=== PATIENT | female | born 1975 | race Caucasian/White ===

== ENCOUNTER → 2017-09-05 07:17 | Outpatient (CLI) | payer OTHER, SELFPAY ==
--- NOTE | 2017-09-05 07:22 | CT_ITS ---
STUDY: CT MAXILLOFACIAL SINUSES REASON FOR EXAM: Female, 41 years old. Sinusitis RADIATION DOSAGE (If Supplied By Facility): CTDIvol = ( 10.16 ) mGy, DLP = ( 299.60 ) mGycm TECHNIQUE: The patient was scanned in a multi detector CT scanner. High resolution axial imaging was performed without the administration of intravenous contrast material. Sagittal and coronal images were reconstructed. Individualized dose optimization techniques were used for this CT. COMPARISON: None. FINDINGS: FRONTAL SINUSES: Normal aeration, without mucosal inflammatory disease. ETHMOIDAL SINUSES: Normal aeration, without mucosal inflammatory disease. MAXILLARY SINUSES: Normal aeration, without mucosal inflammatory disease. There is a 1 cm mucous retention cyst of the right maxillary sinus. SPHENOIDAL SINUSES: Normal aeration, without mucosal inflammatory disease. There is patency of the bilateral maxillary infundibuli with normal uncinate processes, ethmoid bullae, and hiatus semilunaris. Normal bilateral middle turbinates. Normal bilateral inferior turbinates. Normal midline nasal septum. There is patency of the bilateral nasal airways. The visualized osseous structures are normal. The visualized bilateral orbital contents are normal. CT/Sinus/Facial Bone IMPRESSION: Essentially normal CT examination of the maxillofacial sinuses. Electronically Signed: Velasquez Gonzalez MD at 9:15 EDT , Service support ,
== END ==
PROVIDERS: Family Provider Physician Assistant; PCP Physician Assistant; Visit Provider Otolaryngology
DX: J01.91 Acute recurrent sinusitis, unspecified (principal); R51 Headache
CPT/HCPCS: 70486

== ENCOUNTER 2021-05-14 05:15 | Emergency (ER) | payer OTHER, SELFPAY ==
[2021-05-14 05:16] VITALS: BP 152/106; PULSE 89; RESP 18; TEMP 36.3; O2SAT 100; BMI 22.0
--- NOTE | 2021-05-14 05:46 | EKG12_ITS ---
Test Reason : CP Blood Pressure : / mmHG Vent. Rate : 091 BPM Atrial Rate : 091 BPM P-R Int : 128 ms QRS Dur : 090 ms QT Int : 356 ms P-R-T Axes : 082 093 060 degrees QTc Int : 437 ms Normal sinus rhythm Nonspecific ST abnormality Abnormal ECG Confirmed by JOVI COLLIER, EDIN ([id number]), deputy editor in chief RICHAR NAVARRO ([id number]) on 05/19/2021 11:17:14 AM Referred By: PHILLIP Confirmed By:EDIN ESPANA MD
[2021-05-14 05:53] LABS: Absolute Lymphocyte Count 2.28 X10^3/uL (0.83-4.51); Absolute Neutrophil Count 3.5 X10^3/uL (2.0-7.7); Basophil# 0.03 X10^3/uL; Basophil% 0.5 % (0-1); Eosinophil# 0.07 X10^3/uL; Eosinophils% 1.1 % (0-5); Hematocrit 40.3 % (37-47); Hemoglobin 13.6 g/dL (12.0-15.0); Lymphocyte # 2.28 X10^3/ul (0.83-4.51); Lymphocyte % 35.6 % (19-41); Mean Corp Hgb Conc 33.7 g/dL (32-36); Mean Corpuscular Hgb 29.6 pg (27.0-32.0); Mean Corpuscular Volume 87.8 fL (81-99); Mean Platelet Vol. 8.5 fl (6.2-12.0); Monocyte# 0.56 X10^3/uL; Monocyte% 8.7 % (0-10); NRBC Flagged by Analyzer 0 % (0-5); Neutrophil # 3.46 X10^3/uL (2.7-7.7); Neutrophil % 53.9 % (47-70); Platelet Count 324 K/mm3 (150-450); RBC Distribution Width CV 12.8 % (11.6-14.6); RBC Distribution Width SD 41.8 fl (35.1-43.9); Red Blood Count 4.59 M/mm3 (4.2-5.4); White Blood Count 6.4 K/mm3 (4.4-11.0)
--- NOTE | 2021-05-14 06:00 | RAD_ITS ---
STUDY: X-RAY CHEST REASON FOR EXAM: Female, 45 years old. chest pain TECHNIQUE: PA and lateral views of the chest. COMPARISON: None. FINDINGS: There are superimposed monitor leads. The lungs are clear and expanded. There is no demonstrated pleural abnormality. Normal size heart. Normal mediastinum and armond. Normal visualized pulmonary arteries. Normal visualized aortic arch and descending thoracic aorta. Normal visualized thoracic spine. Normal visualized ribs, clavicles, and shoulders. There is no demonstrated abnormality of the visualized soft tissue structures of the upper abdomen. RAD/Chest PA and Lateral IMPRESSION: Normal x-ray examination of the chest. Electronically Signed: Xi Blanc MD at 6:22 EST , Service support ,
--- NOTE | 2021-05-14 06:04 | EX.ED.DYSGE1 ---
HPI History of Present Illness Chief Complaint: Chest Pain Narrative Narrative: Patient is a 45-year-old female who states that she got her second Covid vaccination about 5 days ago. She states since that time she has been noticing intermittent chest wall discomfort. She states that she has been having increased anxiety over this as well. She states last evening she feels like her anxiety and the chest discomfort more intense than they have been over the past 5 days and secondary to this comes to the hospital for evaluation. Patient denies any nausea vomiting diaphoresis or shortness of breath associated with this. She denies any family history of cardiac disease and she denies any recent travel surgery or history of DVT/PE. However as patient symptoms are worsening she was concerned and presents to the hospital for evaluation [facility] Medical History no medical history Home Medications multivitamin [Multi-Day] 1 tab PO DAILY 05/14/21 [History Last Taken Unknown] Allergy/AdvReac Type Severity Reaction Status Date / Time codeine AdvReac Nausea Verified 05/14/21 05:20 Social History Smoking Status: Never smoker [facility] ED Constitutional Constitutional ED: Denies chills or fever(s) ENT ENT ED: Denies sore throat Cardiovascular Cardiovascular: Reports chest pain; Denies palpitations or racing heartbeat Respiratory/Chest Respiratory/Chest: Denies cough or dyspnea Gastrointestinal Gastrointestinal: Denies abdominal pain, diarrhea, nausea or vomiting Genitourinary Genitourinary ED: Denies dysuria Musculoskeletal Musculoskeletal: Reports myalgias Integumentary Denies rash Neurologic Neurologic: Denies headache(s) Psychiatric Psychiatric: Reports anxiety Hematologic/Lymphatic Hematologic/Lymphatic: Denies easy bleeding or easy bruising EXAM Physical Exam Const Vital Signs: 05/14/21 05:16 05/14/21 06:50 Temperature 97.4 F L Temperature Source Temporal Pulse Rate 89 84 Respiratory Rate 18 16 Blood Pressure 152/106 H 153/87 H Blood Pressure Mean 121 Pulse Ox 100 98 Oxygen Delivery Method Room Air Positive well nourished and well developed General Appearance ED: well developed HEENT Reports moist mucous membranes Eyes PERRL and EOMs intact bilaterally Neck supple Chest Wall Chest Narrative: There is reproducible left anterior chest wall pain with palpation without bony deformity or crepitance Resp normal respiratory effort and clear to auscultation bilaterally Cardio regular rate and regular rhythm Rate: other Other Details: Radial pulses are plus 2 out of 4 bilaterally are equal and symmetric GI normal to inspection, nondistended, normoactive bowel sounds, non-tender, non-distended and no masses GI Narrative: No voluntary guarding or rigidity no pulsatile mass Auscultation: normoactive bowel sounds Palpation: soft Extremity normal to inspection Extremity Narrative: No asymmetric edema no pitting edema negative Homans' sign bilaterally Neuro oriented x3 and CN's II-XII intact bilaterally Sensorium / Orientation: alert Motor Exam: strength 5/5 throughout Psych Psych Narrative: Patient has a nervous/anxious affect Mood & Affect: anxious Skin no rashes or lesions noted Skin Narrative: No overlying soft tissue changes to suggest trauma or infection MDM MDM MDM Narrative Medical decision making narrative: Patient presented the ER mildly hypertensive but otherwise had no abnormal vital signs. Her symptoms are most consistent with initial vaccine which has been exacerbated by her anxiety. She is low risk for cardiac disease or PE by did elect to perform a basic work-up because of her symptoms. EKG showed normal sinus rhythm troponin is normal and D-dimer is also normal. Her chest x-ray revealed no widening of the mediastinum or lung pathology. Therefore at this time as she is low risk for CAD and pulmonary embolus and has a negative work-up I do not feel there is need for further treatment and patient can be discharged home. Lab Data Attestation: I reviewed the patient's lab results. Labs: Laboratory Results - last 24 hr 05/14/21 05/14/21 05/14/21 05:25 05:25 05:25 WBC 6.4 RBC 4.59 Hgb 13.6 Hct 40.3 MCV 87.8 MCH 29.6 MCHC 33.7 RDW Std Deviation 41.8 RDW Coeff of Melvin 12.8 Plt Count 324 MPV 8.5 Immature Gran % (Auto) 0.200 Neut % (Auto) 53.9 Lymph % (Auto) 35.6 Williamson % (Auto) 8.7 Eos % (Auto) 1.1 Baso % (Auto) 0.5 Absolute Neuts (auto) 3.5 Absolute Lymphs (auto) 2.28 Nucleated RBC % 0 D-Dimer Quant (PE/DVT) 0.32 Sodium 138 Potassium 3.4 L Chloride 104 Carbon Dioxide 27.0 Anion Gap 7 BUN 12 Creatinine 0.72 Estim Creat Clear Calc 84.31 Est GFR (MDRD) Af Amer 113 Est GFR (MDRD) Non-Af 93 BUN/Creatinine Ratio 16.8 Glucose 96 Calcium 9.0 Magnesium 2.5 Troponin I High Sens < 3 L Radiography Diagnostic Testing: Clinical Impression(s) from Imaging Studies Chest X-Ray 05/14/21 06:00 IMPRESSION: Normal x-ray examination of the chest. Electronically Signed: Xi Blanc MD at 6:22 EST , Service support , Discharge Plan Triage Chief Complaint: Chest Pain ED Provider: Ernesto Husain Dx/Rx/DC Orders Clinical Impression: Acute nonspecific chest pain with low risk of coronary artery disease, Anxiety Instructions: Anxiety Disorders Tx Therapy, ED Chest Pain, Noncardiac Prescriptions: No Action multivitamin [Multi-Day] Tablet 1 tab PO DAILY RF: 0 Primary Care Provider: Jerad Fraser Referrals: Jerad Fraser PA [Primary Care Provider] - Disposition Disposition: Home, Self Care Discharge Date/Time: 05/14/21 06:51
[2021-05-14 06:06] LABS: Anion Gap 7 (5-15); BUN 12 mg/dL (7-18); BUN/Creat Ratio 16.8 RATIO (10-20); Chloride 104 mmol/L (98-107); Creatinine, Serum 0.72 mg/dL (0.55-1.02); EST Glomerular Filtration Rate 93 mL/min (>60); Est Glom Filt Rate - Afr Amer 113 mL/min (>60); Estimated Creatinine Clearance 84.31 ml/min; Glucose 96 mg/dL (74-106); Magnesium 2.5 mg/dL (1.6-2.6); Potassium 3.4 mmol/L (3.5-5.1); Sodium Level 138 mmol/L (136-145); Troponin-I HS < 3 pg/mL (3.0-54.0)
[2021-05-14 06:17] LABS: D-Dimer Quantitative (DVT/PE) 0.32 FEU/ug/m (0.27-0.49)
[2021-05-14 06:50] VITALS: BP 153/87; PULSE 84; RESP 16; O2SAT 98
== END 2021-05-14 06:51 | disposition home or self-care (01) ==
PROVIDERS: Emergency Provider Emergency Medicine; PCP Physician Assistant; Visit Provider Emergency Medicine
DX: R07.89 Other chest pain (principal); F41.9 Anxiety disorder, unspecified
CPT/HCPCS: 71046; 80048; 83735; 84484; 85025; 85379; 93005; 99282; A4216

== ENCOUNTER 2021-08-11 12:30 | Outpatient (RCR) | payer OTHER, SELFPAY ==
--- NOTE | 2021-08-11 09:56 | HP.PTEVAL_ITS ---
Patient's Visit Information ANTONIO KWOK is a 45 year old F referred to Physical Therapy by Dr. Qasim Pete DO with a diagnosis of R shoulder pain. Date of Evaluation: 07/28/21 Physical Therapist: Uriel Lopez DPT - Visit Plan Frequency: 2x /Week Duration: 4 Weeks Plan: Start with RTC stability exercises, adding in strengthening as tolerated. - Subjective Pt. is here today for her initial evaluation with diagnosis of R shoulder pain. Pt. 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 She reports pain under shoulder blade as well. She reports no pain currently. Pt. denies N/T, no radiating pain. Pt. reports no mech of injury as well. She has not been working and reports being weak, from lack of lifting. She reports no relief with chiro. She is no major change with exercise previously, but reports not being consistent with it. Pt. reports the pain can be pretty severe at times, but not consistent. She is hopeful to reduce symptoms in order to get back to all recreational and work activities without limitations. - Pain R scapular region Pain Intensity (Out of 10): 2 Pain Intensity Range: 0, 5 Comment: infraspinatus, teres minor region - Objective POSTURE: Pt. has normal posture of B shoulders, slight rounded shoulder posture. Pt. is able to self correct with VCing. PALPATION: pt. has tenderness at mid trap, infraspinatus and teres minor region on R side. No sub scap pain noted. NEURO: normal throughout. ROM: B shoulders, good motion. Mild increase in R shoulder pain with functional ER and over head motions, but minimal. MMT: Pt. has some weakness with her R shoulder, 5-/5 throughout, comparied to 5/5 of L shoulder. Pain with abd and ER motions (slightly). - Balance/Special Test Scores Quick DASH Score: 18.1800 - Goals Goal 1:: LTG: Pt. to be I with HEP. Goal Time Frame: 4-6 Weeks Goal 2:: STG: Pt. to have full R shoulder ROM without increase in symptoms. Goal Time Frame: 4-6 Weeks Goal 3:: LTG: Pt. to complete all work related activities without increase in symptoms. Goal Time Frame: 4-6 Weeks Goal 4:: LTG: Pt. to have equal symmetrical strength of BUEs without increase in symptoms. Goal Time Frame: 4-6 Weeks - Rehabilitation Potential Physical Therapy Diagnosis: Pt. has signs and symptoms consistent with R shoulder pain, with mild increase in symptoms of teres minor/infraspinatus region. Pt. has increased pain with push/pull motions, but mostly with increased frequency. Pt. would benefit from PT to increase strength and work on reducing stress to these regions. Rehabilitation Potential: Excellent - Anticipated Interventions Patient/Client Instruction: Educate patient on: Condition, Plan of Care, Risk Factors, Benefits of Fitness Program For the Purpose of:: To improve decision making, To facilitate caregiver knowledge, To improve self management, To prevent re-injury, To improve ability to perform tasks related to life management, To improve tolerance to ADL's Therapeutic Exercise to Include: Strength training, Power training, Flexibilty training, Passive ROM, Active ROM, Steve Exercises, Scapular Strength/Stabilization For the Purpose of:: To decrease pain, To decrease swelling/inflammation, To inc rease ROM, To improve nutrient delivery to tissue, To increase oxygenation perfusion, To improve health of tissue, To decrease soft tissue restriction, To increase flexibility/ROM Thank you for the opportunity to evaluate your patient. For Medicare and Medicare HMO plans, please review the plan of care and approve it. It will need to be FAXED BACK to us at [phone] for Medicare purposes. For Medicare only, by signing this I certify the plan of care. Please let me know if there are questions or concerns regarding this plan of care. Physician Signature: Date:
== END 2021-08-11 19:00 | disposition home or self-care (01) ==
LOC: PT 12:30
PROVIDERS: PCP Physician Assistant; Referring Provider Student in an Organized Health Care Education/Training Program; Visit Provider Student in an Organized Health Care Education/Training Program
DX: M70.811 Other soft tissue disorders related to use, overuse and pressure, right shoulder (principal); M75.21 Bicipital tendinitis, right shoulder
CPT/HCPCS: 97161